=== PATIENT | female | born 1960 | race Two or more races ===

== ENCOUNTER 2020-02-11 20:15 | Inpatient (IN) | payer MEDICAID, OTHER ==
[~2020-02-11] VITALS: Ht 162.6 cm; Wt 49.0 kg
[2020-02-11] MEDS ORDERED: SODIUM CHLORIDE 0.9% 1,000 ML IVB ONE (20:28)
[2020-02-11] MEDS ORDERED: ONDANSETRON HCL 4 MG/2 ML VIAL IV ONE (20:30)
[2020-02-11 21:26] LABS: Urine Bacteria MANY /hpf (None Seen); Urine Blood 3+ /uL (Negative); Urine Specific Gravity 1.012 (1.001-1.035); Urine Sperm PRESENT /hpf (None Seen); Urine WBC 912 /hpf (0 - 5); Urine WBC Clumps PRESENT /hpf (None Seen)
[2020-02-11 21:38] LABS: Amphetamine Screen, Urine POSITIVE (NEGATIVE); Barbiturate Scree,Urine NEGATIVE (NEGATIVE); Benzodiazephine Screen, Urine NEGATIVE (NEGATIVE); Cannabinoid Screen, Urine POSITIVE (NEGATIVE); Cocaine Screen, Urine NEGATIVE (NEGATIVE); Opiate Scree,Urine NEGATIVE (NEGATIVE); Phencyclidine Screen, Urine NEGATIVE (NEGATIVE)
[2020-02-11 22:12] LABS: Basophils # (auto) 0 10 ^3/uL (0-0.2); Basophils % (auto) 0.7 % (0.0-2.0); Eosinophils # (auto) 0.2 10 ^3/uL (0-0.8); Eosinophils % (auto) 2.4 % (0.0-7.0); Hematocrit 37.1 % (36.0-46.0); Hemoglobin 12.4 g/dL (12.2-16.2); Lymphocytes # (auto) 1.9 10 ^3/uL (0.4-5.4); Lymphocytes % (auto) 28.2 % (10.0-50.0); Mean Corpuscular Hemoglobin 30.8 pg (28.0-32.0); Mean Corpuscular Hgb Conc. 33.5 g/dL (32.0-36.0); Monocytes # (auto) 0.4 10 ^3/uL (0-1.3); Monocytes % (auto) 6.2 % (0.0-12.0); Neutrophils # (auto) 4.1 10 ^3/uL (1.6-8.6); Neutrophils % (auto) 62.5 % (37.0-80.0); Nucleated Red Blood Cells % 0.1 %; Platelet Count (auto) 386 10^3/uL (140-450); Red Blood Cells 4.03 10^6/uL (4.0-5.20); Red Cell Distribution Width 13.8 % (11.8-14.3); White Blood Cell 6.6 10^3/uL (4.4-10.8)
[2020-02-11 22:31] LABS: Albumin 3.2 g/dL (3.4-5.0); BUN/Creatinine Ratio 13.5; Calcium 8.2 mg/dL (8.5-10.1); Magnesium 2.6 mg/dL (1.6-2.6); Potassium 4.9 mmol/L (3.5-5.1)
[2020-02-11 22:34] LABS: Total Protein 7.5 g/dL (6.4-8.2)
[2020-02-12] MEDS ORDERED: cefTRIAXone 1GM/50ML D5W 50 ML IV ONE (01:00)
[2020-02-12] MEDS ORDERED: SODIUM CHLORIDE 0.9% 1,000 ML IV SCH (01:14)
[2020-02-12] MEDS ORDERED: ACETAMINOPHEN 325 MG TAB PO PRN (01:15)
[2020-02-12] MEDS ORDERED: DOCUSATE SOD 100 MG CAP PO PRN (01:15)
[2020-02-12] MEDS ORDERED: DEXTROSE (50%) 50ML SYRG IV PRN (01:15)
[2020-02-12] MEDS: MORPHINE SULF INJ 2 MG/ML SYRINGE 1ML IV PRN ×2 (02:15→11:25)
[2020-02-12] MEDS: ONDANSETRON HCL 4 MG/2 ML VIAL IV PRN ×2 (02:15→11:26)
[2020-02-12 03:47] LABS: Basophils # (auto) 0 10 ^3/uL (0-0.2); Basophils % (auto) 0.5 % (0.0-2.0); Eosinophils # (auto) 0.2 10 ^3/uL (0-0.8); Eosinophils % (auto) 2.7 % (0.0-7.0); Hematocrit 33.7 % (36.0-46.0); Hemoglobin 11.1 g/dL (12.2-16.2); Lymphocytes # (auto) 2.4 10 ^3/uL (0.4-5.4); Lymphocytes % (auto) 36.8 % (10.0-50.0); Mean Corpuscular Hemoglobin 30.3 pg (28.0-32.0); Mean Corpuscular Volume 91.8 fL (80.0-100.0); Monocytes # (auto) 0.3 10 ^3/uL (0-1.3); Monocytes % (auto) 5.3 % (0.0-12.0); Neutrophils # (auto) 3.5 10 ^3/uL (1.6-8.6); Neutrophils % (auto) 54.7 % (37.0-80.0); Platelet Count (auto) 359 10^3/uL (140-450); Red Blood Cells 3.67 10^6/uL (4.0-5.20); Red Cell Distribution Width 13.8 % (11.8-14.3); White Blood Cell 6.5 10^3/uL (4.4-10.8)
[2020-02-12 04:16] LABS: Cholesterol 211 mg/dL (< 200); HDL Cholesterol 31 mg/dL (40-59); LDL Cholesterol 123 mg/dL (< 100); Triglycerides 360 mg/dL (< 150)
[2020-02-12] MEDS: ACCU-CHEK COMFORT CURVE STRIP VI SCH ×6 (04:19→23:57)
[2020-02-12] MEDS: InsuLIN REG 1unit/0.01ml Soln (100units/ml) SC SCH ×6 (04:29→23:57)
--- NOTE | 2020-02-12 08:40 | NUR ---
Telemetry admit from [facility] admitted to Telemetry unit. Patient oriented to Liseth Allen primary RN, unit, room, bed, and unit policies regarding patient care and visiting hours. Patient now on continuous telemetry monitoring, tele box # 74 and telemetry reading on arrival to unit is 90. Patient is on room air, weighed by bedscale and encouraged to call if they need something. All questions and concerns addressed, patient verbalized understanding.
[2020-02-12 10:00] VITALS: BP 99/57
[2020-02-12] MEDS ORDERED: chlordiazePOXIDE HCL 25 MG CAP PO PRN (12:15)
[2020-02-12] MEDS ORDERED: SODIUM CHLORIDE 0.9% 1,000 ML IV ONE (12:15)
[2020-02-12] MEDS: THIAMINE HCL 100 MG TAB PO SCH (12:41)
[2020-02-12] MEDS: FOLIC ACID 1 MG TAB PO SCH (12:41)
[2020-02-12 12:57] VITALS: BP 99/57
[2020-02-12] MEDS: SODIUM CHLORIDE 0.9% 1,000 ML IV SCH ×2 (14:10→22:15)
--- NOTE | 2020-02-12 15:04 | NUR ---
Assessment Patient is a 59-year-old female who is alert and oriented. Prior to admission patient rented a room and functioned independently. Per patient she can care for her own ADLs. Per patient she receives SSI with an amount of 978dlls per month. Per patient she has a cane for home use. Advised patient there is a social service consult for home health safety evaluation and resources for alcohol and drug use. 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 Per patient she will return to her prior living arrangements post discharge and will need a taxi voucher. Patient requested information for room and board stating she would like to look for a new place to live. Informed patient I will provide her with rehabilitation resource and room and board resource and place it on her chart. Informed patient she has the right to participate in all discharge planning. Patient verbalized understanding and agreed to discharge plan. Addendum: 02/12/20 at 1505 by JUSTIN FERRER Amended: Links added.
[2020-02-12] MEDS: PANTOPRAZOLE 40 MG TAB PO SCH ×2 (15:09→21:05)
[2020-02-12 15:14] LABS: Albumin 2.8 g/dL (3.4-5.0)
[2020-02-12 15:19] LABS: Alanine Aminotransferase 304 U/L (13-56); Alkaline Phosphatase 422 U/L (45-117); Aspartate Aminotransferase 204 U/L (15-37); Bilirubin, Direct 0.7 mg/dL (0-0.2); Bilirubin, Total 0.9 mg/dL (0.2-1.0); Blood Alcohol < 3.0 mg/dL (0-5); Total Protein 6.5 g/dL (6.4-8.2)
[2020-02-12 16:30] VITALS: BP 103/78
[2020-02-12] MEDS ORDERED: GABA-339 PO (19:03)
--- NOTE | 2020-02-12 20:10 | NUR ---
NOTIFIED MD DANGELO OF PATIENT BLOOD CULTURES BEING POSITIVE FOR: GRAM POSITIVE COCCI IN CLUSTERS, AND NOTIFIED OF PATIENT ITCHING ALL OVER BODY, AND PATIENT REQUESTING GABAPENTIN. NEW ORDERS PLACED AND GIVEN. VANCO PLACED BY DOCTOR, GABAPENTIN 600 MG PO TID, AND BENADRYL 50 MG PO ONE TIME DOSE. READ BACK AND CONFIRMED.
[2020-02-12] MEDS ORDERED: VANCOMYCIN PER PHARMACY 0 MG IV SCH (20:15)
[2020-02-12] MEDS ORDERED: VANCOMYCIN 1GM/250ML 250 ML IV ONE (20:15)
[2020-02-12] MEDS ORDERED: diphenhdrAMINE HCL 25 MG CAP PO ONE (20:15)
[2020-02-12] MEDS ORDERED: cefTRIAXone 1GM/50ML D5W 50 ML IV SCH ×2 (20:50→22:00)
[2020-02-12] MEDS: GABAPENTIN 300 MG CAP PO SCH (21:05)
--- NOTE | 2020-02-12 21:30 | NUR ---
GABAPENTIN ADJUSTED BY PHARMACY DUE TO RENAL FUNCTIONS.
[2020-02-12 22:00] VITALS: BP 152/79
[2020-02-12] MEDS: HYDROcodone-ACET 5/325MG TAB PO PRN (22:25)
[2020-02-13] MEDS: InsuLIN REG 1unit/0.01ml Soln (100units/ml) SC SCH ×4 (04:00→16:00)
[2020-02-13] MEDS: GABAPENTIN 300 MG CAP PO SCH ×2 (04:27→13:31)
[2020-02-13] MEDS: ACCU-CHEK COMFORT CURVE STRIP VI SCH ×4 (04:38→16:00)
[2020-02-13 06:21] VITALS: BP 125/70
[2020-02-13 07:01] LABS: Basophils # (auto) 0 10 ^3/uL (0-0.2); Basophils % (auto) 0.5 % (0.0-2.0); Eosinophils # (auto) 0.2 10 ^3/uL (0-0.8); Eosinophils % (auto) 3.1 % (0.0-7.0); Hematocrit 31.6 % (36.0-46.0); Hemoglobin 10.6 g/dL (12.2-16.2); Lymphocytes # (auto) 2.4 10 ^3/uL (0.4-5.4); Mean Corpuscular Hemoglobin 30.9 pg (28.0-32.0); Mean Corpuscular Hgb Conc. 33.6 g/dL (32.0-36.0); Monocytes # (auto) 0.3 10 ^3/uL (0-1.3); Monocytes % (auto) 4.4 % (0.0-12.0); Neutrophils # (auto) 3.6 10 ^3/uL (1.6-8.6); Nucleated Red Blood Cells % 0.1 %; Platelet Count (auto) 335 10^3/uL (140-450); Red Blood Cells 3.44 10^6/uL (4.0-5.20); White Blood Cell 6.6 10^3/uL (4.4-10.8)
[2020-02-13 07:15] LABS: Albumin 2.8 g/dL (3.4-5.0); Calcium 8.2 mg/dL (8.5-10.1); Potassium 4.1 mmol/L (3.5-5.1)
[2020-02-13 07:19] LABS: Bilirubin, Total 0.4 mg/dL (0.2-1.0); INR 0.94 (0.9-1.15); Partial Thromboplastin Time 25.2 sec (23.64-32.05); Total Protein 6.9 g/dL (6.4-8.2)
--- NOTE | 2020-02-13 07:35 | NUR ---
PROVIDED REPORT TO DAY RN, AND ENDORSED TO NOTIFY MD OF PATIENT BEING ALLERGIC TO MORPHINE. Addendum: 02/13/20 at 0737 by Tristian Sage RN PATIENT NOT ALLERGIC TO NORCO PER PATIENT AND PATIENT TOLERATED NORCO PO.
--- NOTE | 2020-02-13 07:36 | NUR ---
Received patient after report from noc shift rn. Patient asleep but easily aroused on initial encounter. Plan of care discussed. Advised patient to call for assistance prn. Bed in low and locked position with 2 side rails up. call light and phone within reach. Will continue to monitor q1hr and prn.
[2020-02-13 08:00] VITALS: BP 152/88
[2020-02-13] MEDS: SODIUM CHLORIDE 0.9% 1,000 ML IV SCH (08:22)
[2020-02-13 08:30] VITALS: BP 152/88
[2020-02-13] MEDS ORDERED: VANCOMYCIN 750mg/250ml 250 ML IV SCH (09:00)
--- NOTE | 2020-02-13 09:56 | NUR ---
Per pre-op staff, EGD procedure today will be determined once covid-19 test result is confirmed.
[2020-02-13] MEDS: THIAMINE HCL 100 MG TAB PO SCH (10:00)
[2020-02-13] MEDS: FOLIC ACID 1 MG TAB PO SCH (10:00)
[2020-02-13] MEDS: PANTOPRAZOLE 40 MG TAB PO SCH (10:00)
--- NOTE | 2020-02-13 10:40 | NUR ---
DR. HENDERSON AT BEDSIDE, DISCUSSED PLAN OF CARE WITH PATIENT. DUGAN PATIENT AWARE THAT EGD PROCEDURE IS CANCELLED SINCE COVID-19 TEST RESULT WILL TAKE LONGER THAN REQUIRED TIME. PATIENT CLEARED FROM MD'S PERSPECTIVE.
[2020-02-13 12:00] VITALS: BP 141/77
[2020-02-13] MEDS: HYDROcodone-ACET 5/325MG TAB PO PRN (12:19)
[2020-02-13 14:17] LABS: BUN/Creatinine Ratio 12.5; Calcium 8.3 mg/dL (8.5-10.1); Potassium 4.3 mmol/L (3.5-5.1)
[2020-02-13] MEDS ORDERED: FOLI1TAB6 PO (15:33)
[2020-02-13] MEDS ORDERED: CLIN-203 PO (15:33)
[2020-02-13] MEDS ORDERED: THIA100T10 PO (15:33)
[2020-02-13] MEDS ORDERED: PANT40T PO (15:33)
[2020-02-13] MEDS ORDERED: LEVO500T21 PO (15:33)
[2020-02-13 17:00] VITALS: BP 141/74
--- NOTE | 2020-02-13 17:25 | NUR ---
patient discharged home with taxi voucher. Alert and oriented. verbalized understanding of discharge follow ups and prescriptions. IV discontinued and tele monitor sent to ICU.
[2020-02-14 11:39] LABS: Hepatitis A Ab IgM Negative; Hepatitis B Core IgM Negative
[2020-02-14 11:40] LABS: Hepatitis B Surface Antigen Negative (Negative); Hepatitis C Antibody Negative (Negative)
== END 2020-02-13 14:25 | disposition home health service (06) | DRG 463 ==
LOC: ER 20:15 → EDBD 20:15 → TELE 20:16 → TELE-EAST 02-12 08:45 → TELE-WESTW 02-12 11:25
PROVIDERS: ADMIT Hospitalist; ATTEND Hospitalist
DX: N30.80 Other cystitis without hematuria (principal); R10.30 Lower abdominal pain, unspecified; F10.20 Alcohol dependence, uncomplicated; R74.0 Nonspecific elevation of levels of transaminase and lactic acid dehydrogenase [LDH]; E78.00 Pure hypercholesterolemia, unspecified; E11.9 Type 2 diabetes mellitus without complications; E78.5 Hyperlipidemia, unspecified; K40.20 Bilateral inguinal hernia, without obstruction or gangrene, not specified as recurrent; F17.210 Nicotine dependence, cigarettes, uncomplicated; F15.10 Other stimulant abuse, uncomplicated; Z90.49 Acquired absence of other specified parts of digestive tract; Z90.710 Acquired absence of both cervix and uterus; N17.0 Acute kidney failure with tubular necrosis
CPT/HCPCS: 36415; 71045; 74176; 80048; 80053; 80061; 80074; 80076; 80307; 80320; 81001; 82150; 82962; 83036; 83690; 83735; 85025; 85610; 85730; 86850; 86900; 86901; 87040; 87077; 87186; 93005; 96361; 96365; G0378; J0696; J1815; J2405